=== PATIENT | female | born 1995 | race Caucasian/White ===

== ENCOUNTER 2016-08-26 20:37 | Emergency (ER) | payer OTHER ==
[2016-08-26 21:22] VITALS: BP 124/66
--- NOTE | 2016-08-26 22:52 | ER Document Report ---
ED General - General Chief Complaint: Swallowed Foreign Body Stated Complaint: THROAT PROBLEM Time Seen by Provider: 08/26/16 22:31 Notes: Patient is a 20-year-old female who presents with complaint of a wood chip in her throat. 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 She says she felt to get lodged in the back of her throat. Since then she has had pain there. She says when she swallows there is a sharp pain in the back of her throat. No fevers. No bleeding. She has not tried to eat or drink since then. No vomiting. No other complaints at this time. TRAVEL OUTSIDE OF THE [place] IN LAST 30 DAYS: No Past Medical History - Social History Smoking Status: Unknown if Ever Smoked Frequency of alcohol use: None Drug Abuse: None Family History: Reviewed & Not Pertinent Renal/ Medical History: Denies: Hx Peritoneal Dialysis Review of Systems - Review of Systems Notes: My Normal Review Basic REVIEW OF SYSTEMS: CONSTITUTIONAL : Denies fever, chills, or sweats. Denies recent illness. EENT: Pian in back of throat. RESPIRATORY: Denies cough, cold, or chest congestion. Denies shortness of breath, difficulty breathing, or wheezing. GASTROINTESTINAL: Denies abdominal pain. Denies nausea, vomiting, or diarrhea. Denies constipation. Last BM: MUSCULOSKELETAL: Denies neck or back pain or joint pain or swelling. SKIN: Denies rash or skin lesions. NEUROLOGICAL: Denies altered mental status or loss of consciousness. Denies headache. Denies weakness or paralysis or loss of use of either side. Denies problems with gait or speech. Denies sensory or motor loss. ALL OTHER SYSTEMS REVIEWED AND NEGATIVE. Physical Exam - Vital signs Vitals: Temp Pulse Resp BP Pulse Ox 97.9 F 62 16 124/66 99 08/26/16 21:16 08/26/16 21:16 08/26/16 21:16 08/26/16 21:16 08/26/16 21:16 - Notes Notes: General Appearance: Well nourished, alert, cooperative, no acute distress, no obvious discomfort. In. Vitals: reviewed, See vital signs table. Head: no swelling or tenderness to the head Eyes: PERRL, EOMI, Conjuctiva clear Mouth: No decreasd moisture Throat: No tonsillar inflammation, No airway obstruction, No lymphadenopathy Neck: Supple, no neck tenderness, No thyromegaly Lungs: No wheezing, No rales, No rhonci, No accessory muscle use, good air exchange bilaterally. Heart: Normal rate, Regular rythm, No murmur, no rub Skin: warm, dry, appropriate color, no rash Neuro: speech clear, oriented x 3, normal affect, responds appropriately to questions. Course - Vital Signs Vital signs: Temp Pulse Resp BP Pulse Ox 97.9 F 62 16 124/66 99 08/26/16 21:16 08/26/16 21:16 08/26/16 21:16 08/26/16 21:16 08/26/16 21:16 - Transfer of Care Notes: 08/27/16 00:26 X-ray did not show anything. I ordered a CT scan. Patient now says she does not want a CT scan because she swallowed 1 of her was in her throat. She says her pain is completely gone. She has no pain in her chest or abdomen. I did give her water to drink. She drinks a glass of water and has no pain and no difficulty swallowing. I informed the patient that since the small piece of wood has most likely made it into her stomach, it is less likely she will have stomach or bowel perforation or difficulties; however, it is still possible this could happen. I informed her that it is extremely important that she goes to the nearest ER immediately if she develops any chest, abdominal, or rectal pain. She should also return to ER immediately if she has any blood in her stool or spit up blood. I informed her to follow-up with her doctor in 3-4 days for close reevaluation. Patient also showed me a small ganglion cyst on her right hand. She says her doctor drained recently but is come back. I informed her that it will continue to come back until its removed. I informed her she should see a hand surgeon to have this removed. Patient is from [place] and says she will follow up with specialist in [place] in regards to this. At this time patient looks well and has no complaints of pain. I again informed her she must return to the nearest ER immediately if she has any pain in her chest abdomen or rectum. Patient agrees with plan will be discharged home. Dictation of this chart was performed using voice recognition software; therefore, there may be some unintended grammatical errors. Discharge - Discharge Clinical Impression: Foreign body ingestion Qualifiers: Encounter type: initial encounter Qualified Code(s): T18.9XXA - Foreign body of alimentary tract, part unspecified, initial encounter Condition: Good Disposition: HOME, SELF-CARE Additional Instructions: Please return to the nearest ER immediately if you develop any pain in your abdomen, rectum, or chest. Please return follow up with your doctor in 4 days for close reevaluation. Return to the ER immediately if you have any blood in your stool or spit up any blood.
--- NOTE | 2016-08-26 23:34 | RADIOLOGY REPORT (SQ) ---
EXAM DESCRIPTION: SOFT TISSUE NECK COMPLETED DATE/TIME: 08/26/2016 11:26 pm REASON FOR STUDY: ? foreign body pharynx COMPARISON: None. NUMBER OF VIEWS: Two views. TECHNIQUE: AP and lateral radiographic image of the soft tissues of the neck. LIMITATIONS: None. FINDINGS: EPIGLOTTIS: Normal. Contour normal. Aryepiglottic folds normal. PREVERTEBRAL SOFT TISSUES: Normal. No soft tissue swelling. SUBGLOTTIC AREA: Normal. No narrowing. RETROPHARYNGEAL SPACE: Normal. No soft tissue masses. BONY STRUCTURES: No significant findings. LUNG APICES: Normal. OTHER: No radiopaque foreign body. No other significant finding. IMPRESSION: NEGATIVE STUDY OF THE SOFT TISSUES OF THE NECK. TECHNICAL DOCUMENTATION: JOB ID: [id number] [employer]- All Rights Reserved
== END 2016-08-27 00:30 | disposition home or self-care (01) ==
LOC: ER 20:37
DX: T18.9XXA Foreign body of alimentary tract, part unspecified, initial encounter (principal); X58.XXXA Exposure to other specified factors, initial encounter; R07.0 Pain in throat; M67.441 Ganglion, right hand; Z98.890 Other specified postprocedural states
CPT/HCPCS: 70360; 99283